=== PATIENT | male | born 1945 | race Caucasian/White ===

== ENCOUNTER 2017-10-19 14:18 | Outpatient (CLI) | payer MEDICARE, OTHER | END 2017-10-19 23:59 | disposition home or self-care (01) | LOC: RT 14:18 | PROVIDERS: ATTEND Internal Medicine Cardiovascular Disease | DX: I10 Essential (primary) hypertension (principal) | CPT/HCPCS: 93005 ==

== ENCOUNTER 2017-12-08 13:24 | Emergency (ER) | payer MEDICARE, OTHER ==
[2017-12-08] MEDS ORDERED: ASPIRIN CHEW 81 MG TABLET PO STA (13:47)
--- NOTE | 2017-12-08 13:49 | ED Physician Documentation ---
PD HPI CHEST PAIN - Stated complaint Stated Complaint: HIGH BLOOD PRESSURE/R LEG CRAMPS - Chief complaint Chief Complaint: Cardiac - History obtained from History obtained from: Patient, Family ( "Vladimir") - History of Present Illness Timing - onset: Other (72-year-old gentleman with history of coronary disease, [address], his desktop operator is Dr. Baxter associated with the [facility]. Over the last couple days he has had mild chest pressure at the end of his walk with his dogs when he has to go uphill back into his driveway. Today he was a physical therapy doing the bicycle he developed substernal chest pressure that resolved when he finished his workout. Of note he has not had a recent stress test, it sounds like because of his Parkinson's he cannot really tolerate doing the nuclear portion of it because he cannot lay still long enough.) Review of Systems Ten Systems: 10 systems reviewed and negative Constitutional: denies: Fever, Chills Cardiac: reports: Chest pain / pressure. denies: Palpitations Respiratory: denies: Dyspnea, Cough GI: denies: Abdominal Pain PD PAST MEDICAL HISTORY - Past Medical History Cardiovascular: SC Respiratory: None Neuro: Parkinson's Endocrine/Autoimmune: None GI: None : Benign prostate hypertrophy HEENT: Chronic vision loss Psych: None Musculoskeletal: None Derm: None Other Past Medical History: Staents x two - Past Surgical History Past Surgical History: Yes Cardiovascular: Coronary stent - Present Medications Home Medications: Ambulatory Orders Medication Instructions Recorded Confirmed Aspirin 325 mg PO DAILY 03/02/16 03/19/16 Atorvastatin [Lipitor] 10 mg PO DAILY 03/02/16 03/19/16 Carbidopa/Levodopa [Carbidopa-Levo 1 each PO Q6HR 03/02/16 03/19/16 ER 25-100 Tab] Carbidopa/Levodopa [Carbidopa-Levo 1 each PO TID 03/02/16 03/19/16 ER 50-200 Tab] Cholecalciferol (Vitamin D3) 1,000 unit PO DAILY 03/02/16 03/19/16 [Vitamin D3] Entacapone [Comtan] 200 mg PO Q6HR 03/02/16 03/19/16 Metoprolol Succinate [Toprol Xl] 50 mg PO DAILY 03/02/16 03/19/16 Hebo-3S/Dha/Epa/Fish Oil [Fish 1 each PO DAILY 03/02/16 03/19/16 Oil 1,200 mg Softgel] Rasagiline [Azilect] 1 mg PO DAILY 03/02/16 03/19/16 Ropinirole HCl [Requip Xl] 8 mg PO DAILY 03/02/16 03/19/16 Sulfamethoxazole/Trimethoprim 1 each PO BID 03/02/16 03/19/16 [Bactrim Ds Tablet] Tamsulosin [Flomax] 0.4 mg PO DAILY #30 capsule 03/02/16 03/19/16 Telmisartan [Micardis] 20 mg PO DAILY 03/02/16 03/19/16 Finasteride 5 mg PO DAILY 03/19/16 03/19/16 - Allergies Allergies/Adverse Reactions: Allergies Allergy/AdvReac Type Severity Reaction Status Date / Time No Known Drug Allergies Allergy Verified 03/02/16 03:33 - Social History Does the pt smoke?: No Smoking Status: Never smoker Does the pt drink ETOH?: Yes Does the pt have substance abuse?: No - Family History Family history: reports: Non contributory - Immunizations Immunizations are current?: Yes - POLST Patient has POLST: No PD ED PE NORMAL - Vitals Vital signs reviewed: Yes - General General: Alert and oriented X 3, No acute distress - HEENT HEENT: PERRL, EOMI - Neck Neck: Supple, no meningeal sign, No bony TTP - Cardiac Cardiac: RRR, No murmur - Respiratory Respiratory: No respiratory distress, Clear bilaterally - Abdomen Abdomen: Normal bowel sounds, Soft, Non tender - Back Back: No CVA TTP, No spinal TTP - Derm Derm: Normal color, Warm and dry - Extremities Extremities: No edema, No calf tenderness / cord - Neuro Neuro: Alert and oriented X 3, Normal speech - Psych Psych: Normal mood, Normal affect Results - Vitals Vitals: Vital Signs - 24 hr 12/08/17 12/08/17 12/08/17 13:28 14:07 16:48 Temperature 36.9 C 36.8 C Heart Rate 89 87 60 Respiratory 16 15 16 Rate Blood Pressure 154/93 H 163/88 H 172/85 H O2 Saturation 98 97 98 Oxygen O2 Source Room air - EKG (time done) 1332 Rate: Rate (enter#) (84) Rhythm: NSR Success: Normal Intervals: Normal NH QRS: Normal Ischemia: Normal ST segments Computer interpretation: Agree with computer - Labs Labs: Laboratory Tests 12/08/17 12/08/17 12/08/17 13:50 13:50 13:50 WBC 6.0 RBC 4.08 L Hgb 12.3 L Hct 35.2 L MCV 86.2 MCH 30.1 MCHC 34.9 RDW 14.9 Plt Count 228 MPV 7.1 L Neut # 3.8 Lymph # 1.4 L Long # 0.6 Eos # 0.1 Baso # 0.0 Absolute Nucleated RBC 0.00 Nucleated RBC % 0.0 Sodium 126 L Potassium 4.1 Chloride 92 L Carbon Dioxide 28 Anion Gap 6.0 BUN 11 Creatinine 0.7 Estimated GFR (MDRD) 111 Glucose 95 Calcium 8.8 Total Bilirubin 0.8 AST 27 ALT < 10 L Alkaline Phosphatase 46 Troponin I < 0.04 Total Protein 6.8 Albumin 4.1 Globulin 2.7 Albumin/Globulin Ratio 1.5 Lipase 15 L - Rads (name of study) 2v chest Radiology: EMP read contemporaneously (normal) PD MEDICAL DECISION MAKING - ED course ED course: 72yo with crescendo angina the last few days and has known CAD. Spoke with his desktop operator, Dr Baxter who feels he should be transferred for attempt at stress although difficulty d/t parkinsonian motion. She requests hospitalist consult. I spoke with Dr Rosas, Who questioned the approach and the need for the heparin drip and will talk with Dr. Baxter and call me back, this was around 3: 35 PM. He was then accepted by TR[facility]win at [facility] [place] unit at 1635 Departure - Departure Disposition: 02 Transfer Acute Care Hosp Clinical Impression: Crescendo angina Condition: Stable Discharge Date/Time: 12/08/17 18:00
[2017-12-08 14:00] LABS: BASOPHILS % (AUTO) 0.7 %; EOSINOPHILS # (AUTO) 0.1 10^3/uL (0.0-0.7); EOSINOPHILS % (AUTO) 1.6 %; HGB - HEMOGLOBIN 12.3 g/dL (14.0-18.0); LYMPHOCYTES # (AUTO) 1.4 10^3/uL (1.5-3.5); LYMPHOCYTES % (AUTO) 23.6 %; MEAN CORPUSCULAR HEMOGLOBIN 30.1 pg (27.0-31.0); MEAN CORPUSCULAR HGB CONC 34.9 g/dL (32.0-36.0); MEAN CORPUSCULAR VOLUME 86.2 fL (80.0-94.0); MEAN PLATELET VOLUME 7.1 fL (7.4-11.4); MONOCYTES # (AUTO) 0.6 10^3/uL (0.0-1.0); MONOCYTES % (AUTO) 10.7 %; NEUTROPHILS # (AUTO) 3.8 10^3/uL (1.5-6.6); NEUTROPHILS % (AUTO) 63.4 %; PLT - PLATELET COUNT 228 10^3/uL (130-450); RED BLOOD COUNT 4.08 10^6/uL (4.70-6.10); RED CELL DISTRIBUTION WIDTH 14.9 % (12.0-15.0)
[2017-12-08 14:13] LABS: ALBUMIN 4.1 g/dL (3.2-5.5); ALBUMIN/GLOBULIN RATIO 1.5 (1.0-2.2); ALKALINE PHOSPHATASE 46 IU/L (42-121); ALT ALANINE AMINOTRANSFERASE < 10 IU/L (10-60); AST ASPARTATE AMINOTRANSFERASE 27 IU/L (10-42); BILIRUBIN,TOTAL 0.8 mg/dL (0.2-1.0); BUN - BLOOD UREA NITROGEN 11 mg/dL (6-20); CALCIUM 8.8 mg/dL (8.5-10.3); CARBON DIOXIDE - CO2 28 mmol/L (21-32); CHLORIDE 92 mmol/L (101-111); CREATININE 0.7 mg/dL (0.6-1.2); GFR - MDRD 111 (>89); GLUCOSE 95 mg/dL (70-100); LIPASE 15 U/L (22-51); SODIUM 126 mmol/L (135-145); TOTAL PROTEIN 6.8 g/dL (6.7-8.2)
[2017-12-08] MEDS ORDERED: HEPARIN 25000UNITS/500ML (D5W) 25,000 UNIT/500 ML BAG IV STA (14:33)
[2017-12-08] MEDS ORDERED: METOPROLOL TARTRATE 50 MG TABLET PO STA (14:33)
[2017-12-08] MEDS ORDERED: HEPARIN 5,000 UNIT/ML VIAL IVP ONE (14:33)
--- NOTE | 2017-12-08 15:18 | XRAY Report ---
EXAM: CHEST RADIOGRAPHY EXAM DATE: 12/08/2017 02:50 PM. CLINICAL HISTORY: Chest pain. COMPARISON: None. TECHNIQUE: 2 views. FINDINGS: Lungs/Pleura: Favor calcified granuloma of the right lower lung. No focal opacities otherwise. No pne umothorax or pleural effusion. Mediastinum: Heart and mediastinal contours are unremarkable. IMPRESSION: No evidence of acute thoracic process RADIA Referring Provider Line: [phone] SITE ID: [id number]
[2017-12-08 16:49] VITALS: BP 172/85
== END 2017-12-08 18:00 | disposition short-term general hospital (02) ==
LOC: ED 13:24
DX: I25.110 Atherosclerotic heart disease of native coronary artery with unstable angina pectoris (principal); G20 Parkinson's disease; I25.2 Old myocardial infarction; N40.0 Benign prostatic hyperplasia without lower urinary tract symptoms; Z79.82 Long term (current) use of aspirin
CPT/HCPCS: 36415; 71046; 80053; 83690; 84484; 85025; 93005; 96365; 96375; 99284; A9270

== ENCOUNTER 2017-12-08 17:45 | Outpatient (CLI) | payer MEDICARE, OTHER | END 2017-12-08 17:46 | disposition short-term general hospital (02) | LOC: EMS 17:45 | PROVIDERS: ATTEND Surgery | DX: I20.0 Unstable angina (principal) | CPT/HCPCS: A0170; A0425; A0426 ==

== ENCOUNTER 2018-06-28 07:47 | Day surgery (SDC) | payer MEDICARE, OTHER ==
[~2018-06-28 07:47] MED LIST: BRIMONIDINE 0.2% OPHTH DROPS 5 ML ONE; CYCLOPENTOLATE 1% OPHTH DROPS 2 ML ONE; EPINEPHrine 1 MG/ML AMP ONE; KETOROLAC 0.45% OPHTH DROPS ONE; PHENYLEPHRINE 2.5% OPHTH 2 ML DROPS ONE; PROPARACAINE 0.5% OPHTH DROPS 15 ML ONE; TIMOLOL 0.5% OPHTH DROPS ONE; TRIAMCIN/MOXIFLOX OPHTHALMIC 0.6 ML VIAL IO ONE; VANCOMYCIN OPHTHALMI 8MG/0.8ML 8 MG/0.8 ML SYRINGE IO ONE
[2018-06-28] MEDS ORDERED: CYCLOPENTOLATE 1% OPHTH DROPS 2 ML LEFTEYE ONE (08:15)
[2018-06-28] MEDS ORDERED: KETOROLAC 0.45% OPHTH DROPS LEFTEYE ONE (08:15)
[2018-06-28] MEDS ORDERED: PROPARACAINE 0.5% OPHTH DROPS 15 ML LEFTEYE ONE ×2 (08:15→09:04)
[2018-06-28] MEDS ORDERED: PHENYLEPHRINE 2.5% OPHTH 2 ML DROPS LEFTEYE ONE (08:15)
--- NOTE | 2018-06-28 08:19 | ANESTHESIA ---
Pre-Anesthesia VS, & Labs - Diagnosis Left senile combined cataract - Procedure Left phaco with IOL implant Vital Signs: Temp Pulse Resp BP Pulse Ox 36.5 C 66 16 164/78 H 100 06/28/18 08:09 06/28/18 08:09 06/28/18 08:09 06/28/18 08:09 06/28/18 08:09 Height 5 ft 10 in Body Mass Index 24.0 - NPO >8 hours, Other (Took Metoprolol and two baby ASA) Home Medications and Allergies Home Medications: Ambulatory Orders Aspirin [Aspirin EC] 2 DAILY 06/28/18 Atorvastatin [Lipitor] 10 mg PO DAILY 03/02/16 Carbidopa/Levodopa [Carbidopa-Levo ER 25-100 Tab] 1 each PO Q6HR 03/02/16 Carbidopa/Levodopa [Carbidopa-Levo ER 50-200 Tab] 1 each PO TID 03/02/16 Metoprolol Succinate [Toprol Xl] 50 mg PO DAILY 03/02/16 Ropinirole HCl [Requip Xl] 8 mg PO DAILY 03/02/16 Finasteride 5 mg PO DAILY 03/19/16 Allergies/Adverse Reactions: Allergies Allergy/AdvReac Type Severity Reaction Status Date / Time No Known Drug Allergies Allergy Verified 03/02/16 03:33 Anes History & Medical History - Anesthetic History Anesthesia Complications: reports: Emergence delirium (Woke up combative once) Family history of Anesthesia Complications: Denies Family history of Malignant Hyperthermia: Denies - Medical History Cardiovascular: reports: [place] Pulmonary: reports: None Gastrointestinal: reports: None Urinary: reports: Benign prostate hypertrophy Neuro: reports: Parkinson's (Patient states he took his L-dopa this AM ane will not have tremors), Tremors Musculoskeletal: reports: None Endocrine/Autoimmune: reports: None Blood Disorders: reports: None Skin: reports: None Smoking Status: Never smoker Psychosocial: reports: No issues indicated - Surgical History Cardiothoracic: CABG (Two maddison bypass in December), Coronary stent Results - EKG Results EKG Comparison: Reviewed EKG Exam General: Alert, Oriented x3 Dental: Poor dentition Mouth Opening: Greater than 4 Fingerbreadths Neck Mobility: Normal Mallampati classification: II Thyromental Distance: greater than 6 cm Respiratory: Lungs clear Cardiovascular: Regular rate Neurological: Normal speech Mental/Cognitive Status: Alert/Oriented X3 Plan Anesthesia Type: MAC Consent for Procedure(s) Verified and Reviewed: Yes Code Status: Attempt Resuscitation ASA classification: 3-Severe systemic disease Is this case an emergency?: No
[2018-06-28] MEDS ORDERED: LACTATED RINGERS 500 ML IV ONE (08:22)
[2018-06-28] MEDS ORDERED: EPINEPHrine 1 MG/ML AMP IR ONE (09:02)
[2018-06-28] MEDS ORDERED: BRIMONIDINE 0.2% OPHTH DROPS 5 ML OPTH ONE (09:02)
[2018-06-28] MEDS ORDERED: BSS/LIDOCAINE/EPINEPHRINE 1 ML SYRINGE IO ONE ×2 (09:03)
[2018-06-28] MEDS ORDERED: CHONDR SULF/HYALURONATE SYRINGE IO ONE (09:03)
[2018-06-28] MEDS ORDERED: TIMOLOL 0.5% OPHTH DROPS OPTH ONE (09:03)
[2018-06-28] MEDS ORDERED: fentaNYL 100 MCG/2 ML VIAL IVP ONE (09:15)
[2018-06-28] MEDS ORDERED: MIDAZOLAM 2 MG/2 ML VIAL IVP ONE (09:15)
[2018-06-28 09:37] VITALS: BP 129/72
[2018-06-28] MEDS ORDERED: BSS/LIDOCAINE/EPINEPHRINE 1 ML SYRINGE ONE (10:34)
--- NOTE | 2018-06-28 11:07 | OPERATIVE REPORT ---
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 This was his first cataract surgery. 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 PROCEDURE: Phacoemulsification with posterior chamber intraocular lens implant, left eye. SURGEON: Dr. Pool Edmonds. ANESTHESIA: Monitored anesthesia care. COMPLICATIONS: None. OPERATIVE INDICATIONS: This is a 73-year-old man with progressive vision loss in the left eye due to 2+ nuclear sclerotic, 3+ posterior subcapsular, and 2+ cortical cataract. Best corrected visual acuity was count fingers vision at 5 feet. Indications for surgery are overall decrease in vision, difficulty seeing words on a computer screen, difficulty reading, difficulty seeing words, closed captions, or game scores on TV, difficulty with glare or bright lights in any situation. He was consented at length concerning risks and benefits of cataract surgery, after which he expressed a desire to proceed with surgery. OPERATIVE PROCEDURE: Patient was taken into OR #3 and placed under monitored anesthesia care. Surgical timeout was conducted confirming correct patient, correct procedure, and correct surgical site. He was given topical anesthesia, then prepped and draped in usual sterile fashion. The eye was entered at the 6 and 3-o'clock positions. Intracameral Shugarcaine was injected into the anterior chamber, followed by Viscoat. Because of the use of Flomax, it was determined that his iris was floppy, so a 7.0 mm Malyugin ring was injected into the anterior chamber and engaged the pupil at 4 points. A continuous-tear curvilinear capsulorrhexis was then performed. The nucleus was hydrodissected and phacoemulsified; however, towards the end of phacoemulsification, the iris basically spit the Malyugin ring anteriorly, and the Malyugin ring was retrieved from the anterior chamber early. Cortex was then evacuated using automated infusion and aspiration. Provisc was injected in the capsular bag, and an 18.0- diopter intraocular lens inserted in the bag. Approximately 0.8 mL of a mixture of triamcinolone, moxifloxacin, and vancomycin was injected subconjunctivally in the superior quadrant for infection and inflammation prophylaxis. I and A was used to evacuate the viscoelastic materials. The eye was inflated to physiologic pressure using a balanced salt solution and found to be watertight. Patient was taken from the operating room in good condition and given postop instructions. TD: 06/28/2018 09:33 MTDSelin
== END 2018-06-28 07:48 | disposition home or self-care (01) ==
LOC: SDS 07:47
PROVIDERS: ATTEND Ophthalmology
PROC: 08RK3JZ Replacement of Left Lens with Synthetic Substitute, Percutaneous Approach (ICD-10-PCS; principal; 2018-06-28 09:00)
DX: H25.812 Combined forms of age-related cataract, left eye (principal); H21.81 Floppy iris syndrome; I10 Essential (primary) hypertension; N40.0 Benign prostatic hyperplasia without lower urinary tract symptoms; G20 Parkinson's disease; Z95.1 Presence of aortocoronary bypass graft; Z95.5 Presence of coronary angioplasty implant and graft
CPT/HCPCS: 66982; A9270; J3490; V2632

== ENCOUNTER 2020-05-19 14:59 | Outpatient (CLI) | payer MEDICARE, OTHER ==
--- NOTE | 2020-05-19 16:26 | XRAY Report ---
PROCEDURE: Lumbar Spine 2 View INDICATIONS: LOW BACK PAIN TECHNIQUE: 2 views of the lumbar spine were acquired. COMPARISON: None. FINDINGS: Bones: 5 spy-oxi-mihjldu vertebrae are present. There is mild grade 1 anterolisthesis of L4 on L5. Multilevel endplate osteophytes and disc space narrowing. Facet hypertrophy throughout the lumbar and lower thoracic spine. No vertebral body compression fractures. No suspicious bony lesions. Soft tissues: Overlying bowel gas pattern is normal. No suspicious soft tissue calcifications. IMPRESSION: Multilevel degenerative disc and facet disease. No acute fracture. No osseous lesion. If symptoms and/or clinical suspicion for pathology continue, further assessment with repeat plain film s, or advanced imaging (e.g., CT, MRI, or bone scan) is recommended for further assessment. Reviewed by: Laura Nick MD on 05/19/2020 4:24 PM PDT Approved by: Laura Nick MD on 05/19/2020 4:24 PM PDT Station ID: [id number]
--- NOTE | 2020-05-19 16:28 | XRAY Report ---
PROCEDURE: Sacrum/Coccyx INDICATIONS: LOW BACK PAIN TECHNIQUE: 3 views of the sacrum and coccyx acquired. COMPARISON: None FINDINGS: Bones: No fractures or dislocations. No suspicious bony lesions. Soft tissues: Visualized bowel gas pattern is normal. No suspicious soft tissue densities. IMPRESSION: No acute fracture. No osseous lesion. If symptoms and/or clinical suspicion for pathology continue, f urther assessment with repeat plain films, or advanced imaging (e.g., CT, MRI, or bone scan) is recom mended for further assessment. Reviewed by: Laura Nick MD on 05/19/2020 4:27 PM PDT Approved by: Laura Nick MD on 05/19/2020 4:27 PM PDT Station ID: [id number]
== END 2020-05-19 15:00 | disposition home or self-care (01) ==
LOC: DI 14:59
PROVIDERS: ATTEND Physician Assistant
DX: M54.5 Low back pain (principal); G62.9 Polyneuropathy, unspecified
CPT/HCPCS: 72100; 72220

== ENCOUNTER 2020-11-08 11:42 | Outpatient (CLI) | payer MEDICARE, OTHER | END 2020-11-08 11:43 | disposition EMS.NT | LOC: EMS 11:42 | DX: R51.9 Headache, unspecified (principal) ==

== ENCOUNTER 2020-11-08 12:38 | Emergency (ER) | payer MEDICARE, OTHER ==
[2020-11-08] MEDS ORDERED: CARBIDOPA/LEVODOPA ER 50 MG/200 MG TABLET PO STA (13:00)
--- NOTE | 2020-11-08 13:04 | ED Physician Documentation ---
PD HPI HEAD INJURY - Stated complaint Stated Complaint: head injury - Chief complaint Chief Complaint: Neuro - History obtained from History obtained from: Patient, Family () - Additional information Additional information: 75-year-old gentleman with Parkinson's fell down 4 days ago on Monday. He was transferring from his wheelchair into his walker and fell and hit his head on his computer desk. There was a large lump on the top of his head, but it was not really hurting. Starting today he has had a headache, some mildly slurred speech. He is not anticoagulated save for baby aspirin. No other injuries. No other new neurologic issues, he does have some chronic left-sided weakness and shuffling gait from the Parkinson's. Review of Systems Ten Systems: 10 systems reviewed and negative Constitutional: reports: Reviewed and negative Cardiac: reports: Reviewed and negative Respiratory: reports: Reviewed and negative PD PAST MEDICAL HISTORY - Past Medical History Cardiovascular: MD Respiratory: None Neuro: Parkinson's (Patient states he took his L-dopa this AM ane will not have tremors), Tremors Endocrine/Autoimmune: None GI: None : Benign prostate hypertrophy HEENT: Chronic vision loss Psych: None Musculoskeletal: None Derm: None - Past Surgical History Past Surgical History: Yes Cardiovascular: CABG (Two maddison bypass in December), Coronary stent - Present Medications Home Medications: Ambulatory Orders Medication Instructions Recorded Confirmed Carbidopa/Levodopa [Carbidopa-Levo 1 each PO Q6HR 03/02/16 11/08/20 ER 25-100 Tab] Carbidopa/Levodopa [Carbidopa-Levo 1 each PO TID 03/02/16 11/08/20 ER 50-200 Tab] Metoprolol Succinate [Toprol Xl] 25 mg PO BID 03/02/16 11/08/20 Ropinirole HCl [Requip Xl] 8 mg PO DAILY 03/02/16 11/08/20 Finasteride 5 mg PO DAILY 03/19/16 11/08/20 Aspirin [Aspirin EC] 2 tab PO DAILY 06/28/18 11/08/20 Pantoprazole [Protonix] 40 mg PO DAILY 11/08/20 11/08/20 Tamsulosin [Flomax] 0.4 mg PO BID 11/08/20 11/08/20 - Allergies Allergies/Adverse Reactions: Allergies Allergy/AdvReac Type Severity Reaction Status Date / Time No Known Drug Allergies Allergy Verified 11/08/20 13:13 - Social History Does the pt smoke?: No Smoking Status: Never smoker Does the pt drink ETOH?: Yes Does the pt have substance abuse?: No - Immunizations Immunizations are current?: Yes - POLST Patient has POLST: No PD ED PE NORMAL - Vitals Vital signs reviewed: Yes - General General: Alert and oriented X 3, Other (He is able to transfer from wheelchair into bed with one-person assistance with shuffling gait) - HEENT HEENT: PERRL, EOMI, Other (There is a firm nontender hematoma just posterior and to the right of the vertex of the scalp) - Neck Neck: No bony TTP - Cardiac Cardiac: RRR, No murmur - Respiratory Respiratory: No respiratory distress, Clear bilaterally - Abdomen Abdomen: Normal bowel sounds, Soft, Non tender - Back Back: No CVA TTP, No spinal TTP - Derm Derm: Normal color, Warm and dry - Neuro Neuro: Alert and oriented X 3, No sensory deficit, Normal speech, Other (Mild left upper extremity weakness which he says is chronic. No obvious slurred speech. Shuffling gait and mild tremor.) Eye Opening: Spontaneous Motor: Obeys Commands Verbal: Oriented GCS Score: 15 Results - Vitals Vitals: Vital Signs - 24 hr 11/08/20 11/08/20 11/08/20 12:46 13:05 13:30 Temperature 36.9 C Heart Rate 82 68 63 Respiratory 18 18 17 Rate Blood Pressure 143/74 H 174/80 H 174/81 H O2 Saturation 98 96 99 Oxygen O2 Source Room air - Labs Labs: Laboratory Tests 11/08/20 11/08/20 11/08/20 13:25 13:25 13:25 WBC 6.4 RBC 4.11 L Hgb 12.8 L Hct 37.9 L MCV 92.2 MCH 31.1 H MCHC 33.8 RDW 13.4 Plt Count 199 MPV 9.5 Neut # (Auto) 4.3 Lymph # (Auto) 1.2 L [place] # (Auto) 0.7 Eos # (Auto) 0.1 Baso # (Auto) 0.0 Absolute Nucleated RBC 0.00 Nucleated RBC % 0.0 PT 12.0 INR 1.1 Sodium 131 L Potassium 4.4 Chloride 94 L Carbon Dioxide 24 Anion Gap 13.0 BUN 21 H Creatinine 0.8 Estimated GFR (MDRD) 94 Glucose 104 H Calcium 9.4 Total Bilirubin 0.9 AST 25 ALT < 10 L Alkaline Phosphatase 49 Total Protein 6.8 Albumin 4.2 Globulin 2.6 Albumin/Globulin Ratio 1.6 PD MEDICAL DECISION MAKING - ED course ED course: 75-year-old gentleman with Parkinson's fell several days ago and now has an increasing headache. He is not anticoagulated. Does not seem like his neurologic examination is significantly different than his baseline. CT imaging of the head and neck were done with chronic and degenerative and age-related findings but no obvious acute disease. Departure - Departure Disposition: 01 Home, Self Care Clinical Impression: Parkinson disease Head injury Qualifiers: Encounter type: initial encounter Qualified Code(s): S09.90XA - Unspecified injury of head, initial encounter Condition: Good Record reviewed to determine appropriate education?: Yes Instructions: ED Head Injury Closed Comments: CAT scan of your head and neck showed no evidence of trauma. You do have hardening of the arteries and age-related and osteoarthritic type changes. Return if you worsen. Follow-up with your primary care physician. Discharge Date/Time: 11/08/20 14:45
[2020-11-08 13:28] LABS: BASOPHILS % (AUTO) 0.5 %; EOSINOPHILS # (AUTO) 0.1 10^3/uL (0.0-0.7); EOSINOPHILS % (AUTO) 2.2 %; HCT - HEMATOCRIT 37.9 % (42.0-52.0); HGB - HEMOGLOBIN 12.8 g/dL (14.0-18.0); LYMPHOCYTES # (AUTO) 1.2 10^3/uL (1.5-3.5); LYMPHOCYTES % (AUTO) 19.1 %; MEAN CORPUSCULAR HEMOGLOBIN 31.1 pg (27.0-31.0); MEAN CORPUSCULAR HGB CONC 33.8 g/dL (32.0-36.0); MEAN CORPUSCULAR VOLUME 92.2 fL (80.0-94.0); MEAN PLATELET VOLUME 9.5 fL (7.4-11.4); MONOCYTES # (AUTO) 0.7 10^3/uL (0.0-1.0); MONOCYTES % (AUTO) 11.4 %; NEUTROPHILS # (AUTO) 4.3 10^3/uL (1.5-6.6); NEUTROPHILS % (AUTO) 66.5 %; PLT - PLATELET COUNT 199 10^3/uL (130-450); RED BLOOD COUNT 4.11 10^6/uL (4.70-6.10); RED CELL DISTRIBUTION WIDTH 13.4 % (12.0-15.0); WHITE BLOOD COUNT 6.4 x10^3/uL (4.8-10.8)
[2020-11-08 13:40] LABS: ALBUMIN 4.2 g/dL (3.2-5.5); ALBUMIN/GLOBULIN RATIO 1.6 (1.0-2.2); ALKALINE PHOSPHATASE 49 IU/L (42-121); ALT ALANINE AMINOTRANSFERASE < 10 IU/L (10-60); AST ASPARTATE AMINOTRANSFERASE 25 IU/L (10-42); BILIRUBIN,TOTAL 0.9 mg/dL (0.2-1.0); BUN - BLOOD UREA NITROGEN 21 mg/dL (6-20); CALCIUM 9.4 mg/dL (8.5-10.3); CARBON DIOXIDE - CO2 24 mmol/L (21-32); CHLORIDE 94 mmol/L (101-111); CREATININE 0.8 mg/dL (0.6-1.2); GFR - MDRD 94 (>89); GLUCOSE 104 mg/dL (70-100); POTASSIUM 4.4 mmol/L (3.5-5.0); SODIUM 131 mmol/L (135-145); TOTAL PROTEIN 6.8 g/dL (6.7-8.2)
[2020-11-08 13:46] LABS: INR 1.1 (0.8-1.2)
--- NOTE | 2020-11-08 14:18 | CT Report ---
PROCEDURE: CERVICAL SPINE WO INDICATIONS: head injury TECHNIQUE: Noncontrast 3 mm thick sections acquired from the skull base to the T4 level. Sagittal and coronal r eformats were then constructed. For radiation dose reduction, the following was used: automated exp osure control, adjustment of mA and/or kV according to patient size. COMPARISON: None. FINDINGS: Image quality: Excellent. Bones: No fractures or dislocations. Visualized superior ribs are intact. Cervical spondylitic alycia nges centered at C5-C6. There is disc height loss and posterior disc osteophyte complex and bilateral uncovertebral joint hypertrophy and bilateral foraminal narrowing. There is bilateral foraminal narr owing at C6-C7. There is chronic anterior vertebral body height loss involving C5, C6, and C7. Soft tissues: Prevertebral soft tissues are normal in thickness. No paravertebral hematomas. No ap ical pneumothoraces. Dense carotid bifurcation region calcifications bilaterally. IMPRESSION: 1. No evidence acute cervical fracture or dislocation. 2. Cervical spondylitic change. 3. ASCVD. Reviewed by: Valentino Rojas MD on 11/08/2020 1:17 PM [place] Approved by: Valentino Rojas MD on 11/08/2020 1:17 PM [facility] Station ID: [id number]
--- NOTE | 2020-11-08 14:20 | CT Report ---
PROCEDURE: HEAD WO INDICATIONS: head injury TECHNIQUE: Noncontrast 4.5 mm thick angled axial sections acquired from the foramen magnum to the vertex. For r adiation dose reduction, the following was used: automated exposure control, adjustment of mA and/or kV according to patient size. COMPARISON: None. FINDINGS: Image quality: Excellent. CSF spaces: Basal cisterns are patent. No extra-axial fluid collections. Ventricles are normal in size and shape. Brain: No midline shift. No intracranial masses or hemorrhage. Garces-white matter interface is norm al. Age-related volume loss and mild small vessel ischemic change. Bilateral distal vertebral artery and internal carotid artery calcifications. Skull and face: Calvarium and visualized facial bones are intact, without suspicious lesions. Sinuses: Visualized sinuses and mastoids are clear. IMPRESSION: 1. ASCVD. 2. Age-related volume loss and mild small vessel ischemic change. 3. No evidence acute stroke, hemorrhage, or mass. 4. No significant intracranial sequelae of acute trauma noted. Reviewed by: Valentino Rojas MD on 11/08/2020 1:19 PM [facility] Approved by: Valentino Rojas MD on 11/08/2020 1:19 PM [facility] Station ID: [id number]
[2020-11-08 14:53] VITALS: BP 174/81
== END 2020-11-08 14:45 | disposition home or self-care (01) ==
LOC: ED 12:38
DX: S09.90XA Unspecified injury of head, initial encounter (principal); S00.03XA Contusion of scalp, initial encounter; W05.0XXA Fall from non-moving wheelchair, initial encounter; Y93.89 Activity, other specified; Y92.009 Unspecified place in unspecified non-institutional (private) residence as the place of occurrence of the external cause; G20 Parkinson's disease; M47.812 Spondylosis without myelopathy or radiculopathy, cervical region; Z79.82 Long term (current) use of aspirin
CPT/HCPCS: 36415; 80053; 85025; 85610; 99284

== ENCOUNTER 2022-06-16 06:24 | Outpatient (CLI) | payer MEDICARE, OTHER | END 2022-06-16 06:25 | disposition critical access hospital (66) | LOC: EMS 06:24 | DX: R51.9 Headache, unspecified (principal); R53.1 Weakness | CPT/HCPCS: A0425; A0429 ==

== ENCOUNTER 2022-06-16 06:46 | Emergency (ER) | payer MEDICARE, OTHER ==
[2022-06-16] MEDS ORDERED: SODIUM CHLORIDE 0.9% 1,000 ML IV STA (08:41)
--- NOTE | 2022-06-16 08:44 | ED Physician Documentation ---
PD HPI HEADACHE - Stated complaint Stated Complaint: BOWLES/WEAKNESS - Chief complaint Chief Complaint: Neuro - History obtained from History obtained from: Patient, Family - History of Present Illness Timing - onset: How many weeks ago (1) Timing - onset during: Rest Timing - duration: Weeks (1) Timing - details: Abrupt onset, Now resolved, Waxing and waning Worst headache ever?: Worst headache ever? Location: Back, Left Quality: Throbbing Associated symptoms: Weakness. No: Fever, Stiff neck, Nausea, Vomiting, Numbness, Syncope, Seizure, Eye pain, Vision changes Improved by: Other (icy hot) Contributing factors: Other (Parkinsons with recently running out of requip). No: Anticoagulated, Possible carbon monoxide, Hypertension, Recent illness, Trauma Similar symptoms before: Has not had sx before Recently seen: Not recently seen - Additional information Additional information: 77-year-old Christos Cisse has a history of Parkinson's disease and he has recently developed a headache to the left occipital region that is periodic throughout the day and seems to have some improvement when his rubbed some icy hot on it. This morning the patient has had this headache wake him up from sleep it was severe and he was unable to use his legs normally secondary to weakness. He has not had any vomiting and he currently has resolution of his headache. Review of Systems Constitutional: denies: Fever Eyes: denies: Decreased vision Ears: reports: Loss of hearing (wears hearing aids missing the right under repair), Tinnitus/ringing. denies: Ear pain Nose: reports: Rhinorrhea / runny nose (typical for him with Parkinsons) Throat: denies: Dental pain / toothache, Sore throat Cardiac: denies: Chest pain / pressure, Palpitations Respiratory: reports: Cough (similar to always). denies: Dyspnea GI: reports: Constipation. denies: Abdominal Pain, Nausea, Vomiting, Diarrhea : reports: Other (urgency this morning). denies: Dysuria, Frequency Skin: denies: Rash Musculoskeletal: reports: Neck pain (to the left). denies: Back pain, Extremity pain Neurologic: reports: Generalized weakness, Headache. 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), Coronary stent - Present Medications Home Medications: Ambulatory Orders Medication Instructions Recorded Confirmed Carbidopa/Levodopa [Carbidopa-Levo 1 each PO Q6HR 03/02/16 11/08/20 ER 25-100 Tab] Carbidopa/Levodopa [Carbidopa-Levo 1 each PO TID 03/02/16 11/08/20 ER 50-200 Tab] Metoprolol Succinate [Toprol Xl] 25 mg PO BID 03/02/16 11/08/20 Ropinirole HCl [Requip Xl] 8 mg PO DAILY 03/02/16 11/08/20 Finasteride 5 mg PO DAILY 03/19/16 11/08/20 Aspirin [Aspirin EC] 2 tab PO DAILY 06/28/18 11/08/20 Pantoprazole [Protonix] 40 mg PO DAILY 11/08/20 11/08/20 Tamsulosin [Flomax] 0.4 mg PO BID 11/08/20 11/08/20 Ciprofloxacin HCl [Cipro] 500 mg PO BID #14 tablet 06/16/22 - Allergies Allergies/Adverse Reactions: Allergies Allergy/AdvReac Type Severity Reaction Status Date / Time No Known Drug Allergies Allergy Verified 06/16/22 06:52 - Social History Does the pt smoke?: No Smoking Status: Never smoker Does the pt drink ETOH?: Yes Does the pt have substance abuse?: No - Immunizations Immunizations are current?: Yes - POLST Patient has POLST: No PD ED PE NORMAL - Vitals Vital signs reviewed: Yes - General General: Alert and oriented X 3, No acute distress, Well developed/nourished - HEENT HEENT: Atraumatic, PERRL, EOMI, Other (dry mucous membranes with dysarthric speech consistent with dehydration or parkinsons) - Neck Neck: Supple, no meningeal sign, No bony TTP - Cardiac Cardiac: RRR, No murmur - Respiratory Respiratory: No respiratory distress, Clear bilaterally - Abdomen Abdomen: Normal bowel sounds, Soft, Non tender, Non distended, No organomegaly - Back Back: No CVA TTP, No spinal TTP - Derm Derm: Normal color, No rash - Extremities Extremities: No deformity, No edema - Neuro Neuro: Alert and oriented X 3, crew trainer 2-12 intact, No motor deficit, No sensory deficit, Other (dysarthric speech ) Eye Opening: Spontaneous Motor: Obeys Commands Verbal: Oriented GCS Score: 15 - Psych Psych: Normal mood, Normal affect Results - Vitals Vitals: Vital Signs - 24 hr 06/16/22 06/16/22 06/16/22 06:49 08:52 10:00 Temperature 36.2 C L Heart Rate 82 80 73 Respiratory 16 18 18 Rate Blood Pressure 161/94 H 161/78 H 183/91 H O2 Saturation 95 100 100 Oxygen O2 Source Room air - Labs Labs: Laboratory Tests 06/16/22 06/16/22 06/16/22 08:54 08:54 08:54 WBC 5.9 RBC 4.25 L Hgb 13.1 L Hct 36.9 L MCV 86.8 MCH 30.8 MCHC 35.5 RDW 13.2 Plt Count 225 MPV 9.1 Neut # (Auto) 4.1 Lymph # (Auto) 1.1 L Luna # (Auto) 0.6 Eos # (Auto) 0.1 Baso # (Auto) 0.0 Absolute Nucleated RBC 0.00 Nucleated RBC % 0.0 Sodium 128 L Potassium 4.6 Chloride 94 L Carbon Dioxide 26 Anion Gap 8.0 BUN 21 H Creatinine 0.9 Estimated GFR (MDRD) 82 L Glucose 111 H Lactic Acid 0.7 Calcium 9.3 Magnesium 2.2 Total Bilirubin 0.9 AST 22 ALT < 10 L Alkaline Phosphatase 47 Total Protein 6.6 L Albumin 4.0 Globulin 2.6 Albumin/Globulin Ratio 1.5 Lipase 29 Urine Color Urine Clarity Urine pH Ur Specific [place] Urine Protein Urine Glucose (UA) Urine Ketones Urine Occult Blood Urine Nitrite Urine Bilirubin Urine Urobilinogen Ur Leukocyte Esterase Urine RBC Urine WBC Ur Squamous Epith Cells Amorphous Sediment Urine Bacteria Ur Microscopic Review Urine Culture Comments 06/16/22 09:51 WBC RBC Hgb Hct MCV MCH MCHC RDW Plt Count MPV Neut # (Auto) Lymph # (Auto) Luna # (Auto) Eos # (Auto) Baso # (Auto) Absolute Nucleated RBC Nucleated RBC % Sodium Potassium Chloride Carbon Dioxide Anion Gap BUN Creatinine Estimated GFR (MDRD) Glucose Lactic Acid Calcium Magnesium Total Bilirubin AST ALT Alkaline Phosphatase Total Protein Albumin Globulin Albumin/Globulin Ratio Lipase Urine Color YELLOW Urine Clarity CLEAR Urine pH 7.0 Ur Specific [place] 1.015 Urine Protein NEGATIVE Urine Glucose (UA) NEGATIVE Urine Ketones TRACE Urine Occult Blood NEGATIVE Urine Nitrite POSITIVE H Urine Bilirubin NEGATIVE Urine Urobilinogen 0.2 (NORMAL) Ur Leukocyte Esterase SMALL H Urine RBC None Seen Urine WBC 11-25 H Ur Squamous Epith Cells RARE Squamous Amorphous Sediment Few Urine Bacteria Few Ur Microscopic Review INDICATED Urine Culture Comments INDICATED - Rads (name of study) CT head Radiology: Prelim report reviewed (Impression: No acute intracranial finding.), EMP read indepedently, See rad report Procedures - IVC sono (time) 0840 Bedside IVC sono: IVC measures (cm) (0.73), IVC collapsed c insp (cm) (complete), Significant dehydration (est 2-3 liter deficit) PD MEDICAL DECISION MAKING - ED course Complexity details: reviewed old records, reviewed results, re-evaluated patient, considered differential, d/w patient, d/w family ED course: 77-year-old male with a history of Parkinson's disease has developed a headache in the left occipital region he has periodic headache and he is significantly dehydrated. Here this morning we have started an IV we are administering some intravenous saline and we have done a CT scan of the head as well as some screening blood work and a urinalysis as the patient is having symptoms of urgency and frequency. Urinalysis reveals evidence of infection consistent with the patient's complaints. In the retrospective history the patient admits that he has decreased his fluid intake to reduce the number of times he has to get up to go to the bathroom. The patient ended up being significantly dehydrated he has improvement with use of intravenous saline and he was administered 1-1/2 L of saline and a gram of Rocephin intravenously. We will start him on some Cipro as an outpatient and he will follow-up with his urologist. Departure - Departure Disposition: 01 Home, Self Care Clinical Impression: Dehydration Urinary tract infection Qualifiers: Urinary tract infection type: acute cystitis Hematuria presence: without hematuria Qualified Code(s): N30.00 - Acute cystitis without hematuria Condition: Stable Instructions: ED Dehydration, ED UTI Cystitis Male Follow-Up: Sai Petersen MD [Provider Admit Priv/Credential] - Prescriptions: Ciprofloxacin HCl [Cipro] 500 mg PO BID #14 tablet Comments: Christos today it looks like you are significantly dehydrated and this is likely the reason you have been having this headache. I suspect the dehydration is related to your decreased fluid intake which is in turn related to your decreased intake of fluid to prevent having to get up so often to urinate. I have e-scribed Cipro, the antibiotic, to treat the infection to the [facility] pharmacy.
[2022-06-16 09:00] LABS: BASOPHILS % (AUTO) 0.3 %; EOSINOPHILS # (AUTO) 0.1 10^3/uL (0.0-0.7); HCT - HEMATOCRIT 36.9 % (42.0-52.0); HGB - HEMOGLOBIN 13.1 g/dL (14.0-18.0); LYMPHOCYTES # (AUTO) 1.1 10^3/uL (1.5-3.5); LYMPHOCYTES % (AUTO) 18.9 %; MEAN CORPUSCULAR HEMOGLOBIN 30.8 pg (27.0-31.0); MEAN CORPUSCULAR HGB CONC 35.5 g/dL (32.0-36.0); MEAN CORPUSCULAR VOLUME 86.8 fL (80.0-94.0); MEAN PLATELET VOLUME 9.1 fL (7.4-11.4); MONOCYTES # (AUTO) 0.6 10^3/uL (0.0-1.0); MONOCYTES % (AUTO) 10.1 %; NEUTROPHILS # (AUTO) 4.1 10^3/uL (1.5-6.6); NEUTROPHILS % (AUTO) 69.5 %; PLT - PLATELET COUNT 225 10^3/uL (130-450); RED BLOOD COUNT 4.25 10^6/uL (4.70-6.10); RED CELL DISTRIBUTION WIDTH 13.2 % (12.0-15.0); WHITE BLOOD COUNT 5.9 x10^3/uL (4.8-10.8)
--- NOTE | 2022-06-16 09:01 | CT Report ---
PROCEDURE: HEAD WO INDICATIONS: Headache TECHNIQUE: Noncontrast 4.5 mm thick angled axial sections acquired from the foramen magnum to the vertex. For r adiation dose reduction, the following was used: automated exposure control, adjustment of mA and/or kV according to patient size. COMPARISON: None. FINDINGS: Image quality: Excellent. CSF spaces: Basal cisterns are patent. No extra-axial fluid collections. Ventricles are normal in size and shape. Brain: Moderate global cerebral volume loss and chronic microvascular ischemic changes. No acute intr acranial hemorrhage. No findings of mass effect or midline shift. Garces-white matter differentiation i s maintained, without CT evidence of an acute large territory infarct. Skull and face: Calvarium and visualized facial bones are intact, without suspicious lesions. Sinuses: Visualized sinuses and mastoids are predominantly clear. IMPRESSION: No acute intracranial finding. Reviewed by: Brett Bowen MD on 06/16/2022 8:59 AM PDT Approved by: Brett Bowen MD on 06/16/2022 8:59 AM PDT Station ID: [id number]
[2022-06-16 09:15] LABS: ALBUMIN/GLOBULIN RATIO 1.5 (1.0-2.2); ALKALINE PHOSPHATASE 47 IU/L (42-121); ALT ALANINE AMINOTRANSFERASE < 10 IU/L (10-60); AST ASPARTATE AMINOTRANSFERASE 22 IU/L (10-42); BILIRUBIN,TOTAL 0.9 mg/dL (0.2-1.0); BUN - BLOOD UREA NITROGEN 21 mg/dL (6-20); CALCIUM 9.3 mg/dL (8.5-10.3); CARBON DIOXIDE - CO2 26 mmol/L (21-32); CHLORIDE 94 mmol/L (101-111); CREATININE 0.9 mg/dL (0.6-1.2); GFR - MDRD 82 (>89); GLUCOSE 111 mg/dL (70-100); LIPASE 29 U/L (22-51); MAGNESIUM 2.2 mg/dL (1.7-2.8); POTASSIUM 4.6 mmol/L (3.5-5.0); SODIUM 128 mmol/L (135-145); TOTAL PROTEIN 6.6 g/dL (6.7-8.2)
[2022-06-16 10:09] LABS: BILIRUBIN,URINE NEGATIVE (NEGATIVE); GLUCOSE, URINE (UA) NEGATIVE (NEGATIVE); KETONES,URINE (UA) TRACE mg/dL (NEGATIVE); LEUKOCYTE ESTERASE, URINE SMALL (NEGATIVE); NITRITE,URINE POSITIVE (NEGATIVE); OCCULT BLOOD,URINE NEGATIVE (NEGATIVE); PROTEIN,URINE NEGATIVE (NEGATIVE); UROBILINOGEN,URINE 0.2 (NORMAL) E.U./dL (NORMAL)
[2022-06-16 10:24] LABS: CLARITY,URINE CLEAR (CLEAR)
[2022-06-16 10:26] LABS: BACTERIA,URINE Few /HPF (None Seen); RBC,URINE None Seen /HPF (0-5); SQUAMOUS EPITHELIAL CELL,UR RARE Squamous (<= Few)
[2022-06-16 10:27] LABS: AMORPHOUS SEDIMENT,UR Few /LPF
[2022-06-16] MEDS ORDERED: cefTRIAXone 1 GM in SODIUM CHLORIDE 0.9% MINIBAG 100 ML IV STA (10:38)
[2022-06-16] MEDS ORDERED: SODIUM CHLORIDE 0.9% 500 ML IV STA (10:48)
[2022-06-16 13:25] VITALS: BP 194/98
== END 2022-06-16 13:24 | disposition home or self-care (01) ==
LOC: EDUNIT# → ED 06:46
DX: E86.0 Dehydration (principal); N30.00 Acute cystitis without hematuria; G20 Parkinson's disease
CPT/HCPCS: 36415; 80053; 81001; 81003; 83605; 83690; 83735; 85025; 87086; 96361; 96365; 99284